=== PATIENT | male | born 1985 | race Two or more races ===

== ENCOUNTER 2020-04-28 10:46 | Emergency (ER) | payer OTHER ==
[~2020-04-28] VITALS: Ht 182.9 cm; Wt 108.9 kg
[2020-04-28 11:19] VITALS: BP 158/71
--- NOTE | 2020-04-28 12:21 | NUR ---
covid swab both, pcr and antigen, as well as flu swab done and sent to lab
--- NOTE | 2020-04-28 12:29 | NUR ---
Patient discharged to home in stable condition. Written and verbal after care instructions given. Patient verbalizes understanding of instruction. Pt ambulatory with a steady gait
--- NOTE | 2020-04-30 15:20 | NUR ---
SPOKE TO PATIENT AND INFORMED ABOUT COVID POSITIVE PCR RESULT
== END 2020-04-28 12:30 | disposition home or self-care (01) ==
LOC: ER 10:55
DX: U07.1 COVID-19 (principal); R03.0 Elevated blood-pressure reading, without diagnosis of hypertension
CPT/HCPCS: 87426; 87804; 99283; C9803; U0003

== ENCOUNTER 2020-05-01 09:24 | Emergency (ER) | payer OTHER ==
[~2020-05-01] VITALS: Ht 182.9 cm; Wt 97.5 kg
[2020-05-01 10:05] VITALS: BP 137/94
== END 2020-05-01 11:17 | disposition home or self-care (01) ==
LOC: ER 09:30
DX: U07.1 COVID-19 (principal); R03.0 Elevated blood-pressure reading, without diagnosis of hypertension